=== PATIENT | female | born 1995 | race Native Hawaiian/Other Pacific Islander ===

== ENCOUNTER 2022-11-29 14:21 | Outpatient (CLI) | payer OTHER ==
--- NOTE | 2022-11-30 11:49 | XRAY Report ---
PROCEDURE: Cervical Spine 2 View INDICATIONS: CONTUSION OF UPPER ARM, TRAPEZIUS MUSCLE SPASM TECHNIQUE: 2 view(s) of the cervical spine were acquired. COMPARISON: None. FINDINGS: Bones: No fractures or dislocations to the C7 level. The lateral masses of C1 appear intact on the odontoid view. No suspicious bony lesions. There is loss of cervical lordosis. Soft tissues: No prevertebral soft tissue swelling. IMPRESSION: Loss of cervical lordosis. Otherwise normal x-ray of the cervical spine. Reviewed by: Mariana Calderon MD on 11/30/2022 11:48 AM PDT Approved by: Mariana Calderon MD on 11/30/2022 11:48 AM PDT Station ID: [id number]
--- NOTE | 2022-11-30 11:50 | XRAY Report ---
PROCEDURE: Shoulder 3 View LT INDICATIONS: CONTUSION OF UPPER ARM TRAPEZIUS MUSCLE SPASM TECHNIQUE: 3 views of the shoulder were acquired. COMPARISON: None. FINDINGS: Bones: No fractures or dislocations. No suspicious bony lesions. Visualized ribs appear intact. Soft tissues: No suspicious soft tissue calcifications. IMPRESSION: No acute osseous abnormality. If clinical symptoms persist, consider a repeat examination in 7-10 day s or advanced imaging such as MRI for further evaluation. Reviewed by: Mariana Calderon MD on 11/30/2022 11:49 AM PDT Approved by: Mariana Calderon MD on 11/30/2022 11:49 AM PDT Station ID: [id number]
--- NOTE | 2022-11-30 11:55 | XRAY Report ---
PROCEDURE: Elbow 3 View LT INDICATIONS: ELBOW JOINT PAIN TECHNIQUE: 3 views of the elbow were acquired. COMPARISON: None. FINDINGS: Bones: No fractures or dislocations. No suspicious bony lesions. There is a small ossicle in the po sterior aspect of the elbow joint. Soft tissues: No effusion. No suspicious soft tissue calcifications or masses. IMPRESSION: 1. A small ossicle is seen in the posterior aspect of the elbow joint. Differential diagnoses are fra cture fragment versus an intra-articular body. If clinical symptoms persist, consider MRI for further evaluation. Reviewed by: Mariana Calderon MD on 11/30/2022 11:53 AM PDT Approved by: Mariana Calderon MD on 11/30/2022 11:53 AM PDT Station ID: [id number]
== END 2022-11-29 23:25 | disposition home or self-care (01) ==
LOC: DI.N 14:21
PROVIDERS: ATTEND Registered Nurse
DX: S40.022A Contusion of left upper arm, initial encounter (principal); M62.830 Muscle spasm of back; S16.1XXA Strain of muscle, fascia and tendon at neck level, initial encounter; M25.522 Pain in left elbow

== ENCOUNTER 2023-02-21 13:52 | Outpatient (CLI) | payer OTHER ==
--- NOTE | 2023-02-21 16:38 | MRI Report ---
PROCEDURE: CERVICAL SPINE WO INDICATIONS: SPRAIN OF CERVICAL SPINE LIGAMENTS TECHNIQUE: Noncontrast sagittal T1 spin echo and T2 fast spin echo, sagittal STIR, foraminal oblique sagittal T2 fast spin echo, and axial gradient echo or T2 fast spin echo through the cervical spine. COMPARISON: None. FINDINGS: Image quality: Excellent. Alignment and Curvature: There is normal bony alignment. Bone Marrow: Marrow demonstrates normal overall signal. Spinal Cord: Visualized spinal cord has normal size and signal. No cerebellar tonsillar herniation. Paraspinous Soft Tissues: No paravertebral masses. Prevertebral soft tissues are normal in thicknes s. C2-C3: No disc bulge. The foramina and central canal are patent. C3-C4: Minimal diffuse disc bulge. The foramina and central canal are patent. C4-C5: The disc is desiccated consistent with degeneration. Minimal diffuse disc bulge. The foramina and central canal are patent. C5-C6: The disc is desiccated consistent with degeneration. Minimal diffuse disc bulge. The foramina and central canal are patent. C6-C7: No significant radiographic abnormality. If pain continues consider MRI. C7-T1: No disc bulge. The foramina and central canal are patent. IMPRESSION: 1. Mild degenerative disc disease with no significant foraminal or central canal stenosis. 2. No acute abnormality. 3. No abnormal cord signal. Reviewed by: Jacobo Child on 02/21/2023 4:37 PM PDT Approved by: Jacobo Child on 02/21/2023 4:37 PM PDT Station ID: [id number]
== END 2023-02-21 13:53 | disposition home or self-care (01) ==
LOC: DI 13:52
PROVIDERS: ATTEND Emergency Medicine
DX: S13.4XXA Sprain of ligaments of cervical spine, initial encounter (principal); M50.31 Other cervical disc degeneration, high cervical region

== ENCOUNTER 2023-03-18 10:48 | Outpatient (CLI) | payer OTHER ==
[2023-03-18] MEDS ORDERED: iohexoL-300 100 ML VIAL IVP ONE (11:19)
--- NOTE | 2023-03-18 15:14 | CT Report ---
PROCEDURE: CT Angio Neck W INDICATIONS: SYNCOPE CONTRAST: 100ml omni 300 TECHNIQUE: After the administration of intravenous contrast, 1.5 mm axial sections acquired from the aortic arch to the [place] of [place]. Coronal 3-D maximum intensity projection (MIP) and/or volume rendering ref ormats were then performed. For radiation dose reduction, the following was used: automated exposur e control, adjustment of mA and/or kV according to patient size. COMPARISON: Correlation is made with cervical spine CT, 02/21/2023 FINDINGS: Image quality: This study is limited by body habitus and by quantum mottling artifact. Carotid system: The great vessels demonstrate a conventional anatomy as they arise from the aortic a rch. The origins of the common carotid arteries appear patent. The common carotid arteries demonstr ate normal calibers and courses. The bifurcation regions appear normal bilaterally. The internal ca rotid arteries demonstrate normal caliber and course. Posterior circulation: The origins of the vertebral arteries appear patent. The more superior porti ons of the vertebral arteries demonstrate normal course and caliber. They join to form a normal appe aring basilar artery. Soft tissues: Visualized neck soft tissues demonstrate no suspicious abnormalities. The thyroid is normal in size and there are no incidental findings. Bones: No suspicious bony lesions. Visualized cervical spine appears normally aligned. IMPRESSION: No hemodynamically significant stenosis can be seen within the arteries of the neck. No findings of d issection are seen. No significant intracranial arterial abnormalities are seen. Limited quality study. The estimate of stenosis included in the report of the imaging study was calculated using the NASCET method Reviewed by: Arias Boone MD on 03/18/2023 2:12 PM [facility] Approved by: Arias Boone MD on 03/18/2023 2:12 PM HERMINIO Station ID: [id number]
== END 2023-03-18 10:49 | disposition home or self-care (01) ==
LOC: DI 10:48
PROVIDERS: ATTEND Physician Assistant Medical
DX: R55 Syncope and collapse (principal)
CPT/HCPCS: 70498; Q9967